=== PATIENT | male | born 1990 | race Caucasian/White ===

== ENCOUNTER → 2020-01-19 08:36 | Outpatient (CLI) | payer OTHER, SELFPAY ==
[2020-01-20 23:06] LABS: COVID19 Sendout Not Detected (Not Detected)
== END ==
PROVIDERS: Visit Provider Physician Assistant
DX: Z11.59 Encounter for screening for other viral diseases (principal); R19.7 Diarrhea, unspecified; R50.9 Fever, unspecified
CPT/HCPCS: 87635

== ENCOUNTER 2020-08-22 13:20 | Emergency (ER) | payer OTHER, SELFPAY ==
[2020-08-22 13:23] VITALS: BP 150/97; PULSE 70; RESP 14; TEMP 36.9; O2SAT 100; BMI 24.3
[2020-08-22] MEDS: LIDOCAINE 1% (PF) 2 ML SUBCUT (15:28)
--- NOTE | 2020-08-22 15:52 | ED_ITS ---
HPI - Wound/Laceration General Chief Complaint: Wound/Laceration Stated Complaint: split eyebrow open today Time Seen by Provider: 08/22/20 15:13 Source: patient Mode of arrival: Ambulatory Limitations: no limitations History of Present Illness HPI narrative: The patient was working and home. He was using a pry bar. He pulled against the bar, the tip struck him in the left periorbital area. He sustained a right periorbital laceration. He has no visual changes, no eye pain. He has no confusion or LOC. There were no other injuries. The event happened at home just prior to arrival here. His last tetanus was 4 years ago. He has no chronic medical problems. Related Data Allergies Allergy/AdvReac Type Severity Reaction Status Date / Time amoxicillin Allergy Verified 08/22/20 13:23 cefaclor [From Ceclor] Allergy Verified 08/22/20 13:23 clavulanic acid Allergy Verified 08/22/20 13:23 [From Augmentin] Review of Systems Constitutional Constitutional: Denies chills, Denies fever(s) and Denies malaise Eyes Eyes: Denies blurry vision, Denies diplopia and Denies eye pain ENT Comments: Left periorbital laceration Cardiovascular Cardiovascular: Denies chest pain, Denies syncope and Denies rapid heart rate Musculoskeletal Comments: No neck pain. Integumentary/Breasts Comments: Facial lacerations noted. Neurologic Neurologic: Denies syncope Patient History Medical History (Updated 08/22/20 @ 15:56 by Devon Lara MD) Healthy adult Surgical History (Updated 08/22/20 @ 15:57 by Devon Lara MD) No significant past surgical history Social History Smoking Status: Unknown if ever smoked Smoking Status: Unknown if ever smoked alcohol intake frequency: holidays/special occasions only Substance Use Type: does not use and marijuana Exam Initial Vital Signs Initial Vital Signs: Vital Signs Temperature 98.4 F 08/22/20 13:23 Pulse Rate 70 08/22/20 13:23 Respiratory Rate 14 08/22/20 13:23 Blood Pressure 150/97 H 08/22/20 13:23 Pulse Oximetry 100 08/22/20 13:23 Const General: cooperative and healthy appearing [facility] Head: other (2 cm laceration in the left brow. No step-offs. No foreign body.) Nose: external nose normal Mouth: oral mucosae normal Eyes General: appearance normal, both eyes and all related structures Eyelids: eyelids normal Conjunctivae: conjunctivae normal Sclera: sclerae normal Pupils: PERRL EOM: EOM intact bilaterally Neck Neck: No tender Procedures Laceration Repair Laceration 1: Site: face Side (If applicable): left Size (cm): 2 Description: irregular Depth: simple, single layer Local Anesthetic: lidocaine 1% Amount of anesthesia used (mL): 2 Pre-repair: wound explored and irrigated extensively Skin layer closed with: nylon Size (cm): 5-0 Course Orders Ordered: Discontinued Medications Lidocaine HCl (Lidocaine 1% (Pf)) 2 ml SUBCUT NOW ONE Stop: 08/22/20 15:18 Last Admin: 08/22/20 15:28 Dose: 2 ml Documented by: JASPER Vital Signs Vital signs: Vital Signs - 8 hr 08/22/20 13:23 Temperature 98.4 F Pulse Rate 70 Respiratory Rate 14 Blood Pressure 150/97 H Pulse Oximetry 100 Discharge Plan Departure Patient Disposition: Home Clinical Impression: Facial laceration Qualifiers: Encounter type: initial encounter Qualified Code(s): S01.81XA - Laceration without foreign body of other part of head, initial encounter Instructions: DI for Laceration Repair Activity Restrictions/Additional Instructions: Take the bandage off in 24 hours. You may shower, bathe normally. Follow-up with your doctor or return here for suture removal in 7 days. Referrals: Miscellaneous,MD Shane [Primary Care Provider] -
[2020-08-22 16:02] VITALS: BP 143/91; PULSE 66; O2SAT 99
== END 2020-08-22 16:03 | disposition home or self-care (01) ==
PROVIDERS: Emergency Provider Emergency Medicine
DX: S01.81XA Laceration without foreign body of other part of head, initial encounter (principal); W22.8XXA Striking against or struck by other objects, initial encounter
CPT/HCPCS: 12011; 99282

== ENCOUNTER → 2021-04-08 12:27 | Outpatient (CLI) | payer OTHER, SELFPAY ==
[2021-04-08 13:08] LABS: Add Manual Diff / Slide Review NO; Basophils Absolute Auto 0 /uL (0-100); Eosinophils Absolute Auto 200 /uL (0-450); Hematocrit 40.1 % (41-53); Hemoglobin 13.7 g/dL (13.5-17.5); Lymphocytes Absolute Auto 1200 /uL (1100-4500); Lymphocytes Percent Auto 29.7 % (25-40); Mean Corpuscular HGB Conc 34.2 % (30-36); Mean Corpuscular Hemoglobin 29.8 PG (26-34); Mean Corpuscular Volume 87.1 fL (80-100); Monocytes Absolute Auto 400 /uL (0-900); Monocytes Percent Auto 9.1 % (3-14); Neutrophils Absolute Auto 2300 /uL (1500-7000); Neutrophils Percent Auto 54.2 % (50-75); Platelet Count 237 X10^3/uL (150-400); Red Cell Distribution Width 12.3 % (11.6-14.8); White Blood Cell Count 4.2 X10^3/uL (4.5-11.0)
[2021-04-08 13:28] LABS: Alanine Aminotransferase 25 IU/L (<50); Albumin 4.9 g/dL (3.5-5.0); Albumin Globulin Ratio 2.1 (1.0-2.8); Alkaline Phosphatase 41 U/L (38-126); Aspartate Aminotransferase 34 IU/L (17-59); BUN Creatinine Ratio 22.1 (6-22); Bilirubin Total 0.9 mg/dL (0.2-1.3); Blood Urea Nitrogen 19 mg/dL (9-20); Calcium 9.6 mg/dL (8.4-10.2); Carbon Dioxide 33 mmol/L (22-32); Chloride 100 mmol/L (98-107); Estimated Glomerular Filt Rate > 60.0 mL/min (>60); Globulin 2.3 g/dL (1.7-4.1); Glucose 78 mg/dL (70-100); HEMOLYSIS < 15 (0-50); Lactate Dehydrogenase 526 U/L (313-618); Potassium 4.1 mmol/L (3.4-5.1); Sodium 140 mmol/L (137-145); Total Protein 7.2 g/dL (6.3-8.2)
[2021-04-09 08:10] LABS: RPR Screen Non Reactive (Non Reactive)
== END ==
PROVIDERS: PCP Family Medicine; Referring Provider Family Medicine; Visit Provider Family Medicine
DX: R59.0 Localized enlarged lymph nodes (principal); L02.91 Cutaneous abscess, unspecified
CPT/HCPCS: 36415; 80053; 83615; 85025; 86592; 87070; 87075; 87077; 87205

== ENCOUNTER → 2021-04-23 14:12 | Outpatient (CLI) | payer OTHER, SELFPAY ==
--- NOTE | 2021-04-23 14:13 | DI.US.S_ITS ---
PROCEDURE: US ABDOMEN LIMITED INDICATIONS: bilateral inguinal node enlargement. TECHNIQUE: Real-time focused scanning was performed of the abdomen, with image documentation. COMPARISON: None. FINDINGS: Focused ultrasound examination of bilateral inguinal region shows multiple prominent lymph nodes bilaterally measures up to 3 x 0.5 x 0.8 cm in size in left inguinal region and up to 3.2 x 0.6 x 0.9 cm in size in right inguinal region. No inguinal hernia is seen. IMPRESSION: Mildly prominent bilateral inguinal lymph nodes as described above and may represent reactive inflammatory nodes. Dictated by: Satnam Loya M.D. on 04/23/2021 at 15:16 Approved by: Satnam Loya M.D. on 04/23/2021 at 15:17
== END ==
PROVIDERS: PCP Family Medicine; Referring Provider Family Medicine; Visit Provider Family Medicine
DX: R59.0 Localized enlarged lymph nodes (principal)
CPT/HCPCS: 76705

== ENCOUNTER → 2021-04-29 12:07 | Outpatient (CLI) | payer OTHER, SELFPAY | PROVIDERS: PCP Family Medicine; Visit Provider Family Medicine | DX: L02.91 Cutaneous abscess, unspecified (principal) | CPT/HCPCS: 87070; 87205 ==